=== PATIENT | female | born 1935 | race Two or more races ===

== ENCOUNTER → 2022-07-04 | Outpatient (CLI) | payer OTHER ==
[2022-07-04 10:15] LABS: Urine Bacteria NONE SEEN /hpf (None Seen); Urine Blood Negative /uL (Negative); Urine Specific Gravity 1.004 (1.001-1.035); Urine WBC 1 /hpf (0 - 5)
[2022-07-04 10:34] LABS: Potassium 4.4 mmol/L (3.5-5.1)
[2022-07-04 10:46] LABS: Albumin 3.9 g/dL (3.4-5.0); BUN/Creatinine Ratio 31.5; Bilirubin, Total 0.6 mg/dL (0.2-1.0); Calcium 9.6 mg/dL (8.5-10.1)
== END | disposition home or self-care (01) ==
LOC: LAB 09:28
PROVIDERS: ATTEND Family Medicine
DX: Z00.01 Encounter for general adult medical examination with abnormal findings (principal)
CPT/HCPCS: 36415; 80053; 80061; 81001; 82306; 83036; 84443; 87086; 87088

== ENCOUNTER → 2023-04-15 | Outpatient (CLI) | payer OTHER ==
[2023-04-15 13:32] LABS: Alanine Aminotransferase 18 U/L (7-40); Alkaline Phosphatase 74 U/L (46-116); Anion Gap 5 (5-15); Blood Urea Nitrogen 16 mg/dL (9-23); Calcium 9.7 mg/dL (8.5-10.1); Carbon Dioxide 30 mmol/L (20-30); Chloride 106 mmol/L (98-107); Glucose 84 mg/dL (74-106); Potassium 4.8 mmol/L (3.5-5.1); Sodium 141 mmol/L (136-145); Triglycerides 85 mg/dL (< 150)
[2023-04-15 13:33] LABS: LDL Cholesterol 93 mg/dL (< 100)
[2023-04-15 13:34] LABS: Albumin 4.4 g/dL (3.2-4.8); Aspartate Aminotransferase 24 U/L (13-40); Bilirubin, Total 0.5 mg/dL (0.2-1.0); Cholesterol 170 mg/dL (< 200); HDL Cholesterol 67 mg/dL (40-59); Total Protein 6.5 g/dL (5.7-8.2)
== END | disposition home or self-care (01) ==
LOC: LAB 12:08
PROVIDERS: ATTEND Family Medicine
DX: I12.9 Hypertensive chronic kidney disease with stage 1 through stage 4 chronic kidney disease, or unspecified chronic kidney disease (principal); E11.22 Type 2 diabetes mellitus with diabetic chronic kidney disease; N18.9 Chronic kidney disease, unspecified; E78.5 Hyperlipidemia, unspecified; E78.2 Mixed hyperlipidemia; E03.9 Hypothyroidism, unspecified
CPT/HCPCS: 36415; 80053; 80061; 83036; 84443

== ENCOUNTER → 2023-07-16 | Outpatient (CLI) | payer OTHER ==
[2023-07-16 13:05] LABS: Alanine Aminotransferase 15 U/L (7-40); Albumin 4.2 g/dL (3.2-4.8); Alkaline Phosphatase 79 U/L (46-116); Anion Gap 2 (5-15); Aspartate Aminotransferase 23 U/L (13-40); BUN/Creatinine Ratio 17.1 (10.0-20.0); Blood Urea Nitrogen 14 mg/dL (9-23); Calcium 9.7 mg/dL (8.5-10.1); Carbon Dioxide 34 mmol/L (20-30); Chloride 103 mmol/L (98-107); Cholesterol 155 mg/dL (< 200); Glucose 85 mg/dL (74-106); HDL Cholesterol 58 mg/dL (40-59); LDL Cholesterol 82 mg/dL (< 100); Potassium 4.8 mmol/L (3.5-5.1); Sodium 139 mmol/L (136-145); Triglycerides 126 mg/dL (< 150)
[2023-07-16 13:06] LABS: Bilirubin, Total 0.5 mg/dL (0.2-1.0); Total Protein 6.3 g/dL (5.7-8.2)
== END | disposition home or self-care (01) ==
LOC: LAB 12:22
PROVIDERS: ATTEND Family Medicine
DX: I12.9 Hypertensive chronic kidney disease with stage 1 through stage 4 chronic kidney disease, or unspecified chronic kidney disease (principal); E11.22 Type 2 diabetes mellitus with diabetic chronic kidney disease; N18.9 Chronic kidney disease, unspecified; E78.5 Hyperlipidemia, unspecified; E78.2 Mixed hyperlipidemia; E03.9 Hypothyroidism, unspecified
CPT/HCPCS: 36415; 80053; 80061; 83036

== ENCOUNTER → 2023-07-18 | Outpatient (CLI) | payer OTHER ==
[2023-07-18 10:22] LABS: Basophils # (auto) 0.1 10 ^3/uL (0-0.2); Basophils % (auto) 0.8 % (0.0-2.0); Eosinophils # (auto) 0.1 10 ^3/uL (0-0.8); Hematocrit 42.4 % (36.0-46.0); Hemoglobin 13.9 g/dL (12.2-16.2); Lymphocytes # (auto) 2.1 10 ^3/uL (0.4-5.4); Lymphocytes % (auto) 32.6 % (10.0-50.0); Mean Corpuscular Hemoglobin 28.6 pg (28.0-32.0); Mean Corpuscular Hgb Conc. 32.9 g/dL (32.0-36.0); Mean Corpuscular Volume 86.9 fL (80.0-100.0); Monocytes # (auto) 0.6 10 ^3/uL (0-1.3); Monocytes % (auto) 8.9 % (0.0-12.0); Neutrophils # (auto) 3.6 10 ^3/uL (1.6-8.6); Neutrophils % (auto) 55.7 % (37.0-80.0); Nucleated Red Blood Cells % 0.1 %; Red Blood Cells 4.87 10^6/uL (4.0-5.20); Red Cell Distribution Width 13.8 % (11.8-14.3); Urine Blood Negative /uL (Negative); Urine Clarity Clear (Clear); Urine Protein, UAD Negative (Negative); Urine Specific Gravity 1.005 (1.001-1.035); Urine Urobilinogen Normal (Negative); White Blood Cell 6.6 10^3/uL (4.4-10.8)
[2023-07-18 10:34] LABS: Urine Color Straw (Yellow)
[2023-07-18 11:02] LABS: Alanine Aminotransferase 15 U/L (7-40); Alkaline Phosphatase 85 U/L (46-116); Anion Gap 5 (5-15); Blood Urea Nitrogen 15 mg/dL (9-23); Carbon Dioxide 31 mmol/L (20-30); Chloride 103 mmol/L (98-107); Glucose 87 mg/dL (74-106); LDL Cholesterol 80 mg/dL (< 100); Sodium 139 mmol/L (136-145); Triglycerides 106 mg/dL (< 150)
[2023-07-18 11:03] LABS: Albumin 4.3 g/dL (3.2-4.8); Aspartate Aminotransferase 26 U/L (13-40); Bilirubin, Total 0.5 mg/dL (0.2-1.0); Cholesterol 155 mg/dL (< 200); HDL Cholesterol 61 mg/dL (40-59); Total Protein 6.5 g/dL (5.7-8.2)
[2023-07-18 11:31] LABS: Uric Acid 4.6 mg/dL (3.1-7.8)
== END | disposition home or self-care (01) ==
LOC: LAB 09:47
PROVIDERS: ATTEND Family Medicine
DX: I10 Essential (primary) hypertension (principal); E78.5 Hyperlipidemia, unspecified; R73.09 Other abnormal glucose; F33.9 Major depressive disorder, recurrent, unspecified; D69.2 Other nonthrombocytopenic purpura
CPT/HCPCS: 36415; 80053; 80061; 81003; 82270; 83036; 84443; 84550; 85025

== ENCOUNTER → 2023-08-22 | Outpatient (CLI) | payer OTHER ==
[2023-08-22 15:53] LABS: Urine Bacteria MANY /hpf (None Seen); Urine Blood Negative /uL (Negative); Urine Clarity Clear (Clear); Urine Color Colorless (Yellow); Urine Protein, UAD Negative (Negative); Urine Urobilinogen Normal (Negative); Urine WBC 4 /hpf (0 - 5); Urine pH 6.5 (5.0-9.0)
== END | disposition home or self-care (01) ==
LOC: LAB 15:39
PROVIDERS: ATTEND Urology
DX: R32 Unspecified urinary incontinence (principal)
CPT/HCPCS: 81001; 87086

== ENCOUNTER → 2023-10-14 | Outpatient (CLI) | payer OTHER ==
[2023-10-14 09:51] LABS: Anion Gap 4 (5-15); Calcium 9.8 mg/dL (8.5-10.1); Carbon Dioxide 31 mmol/L (20-30); Chloride 106 mmol/L (98-107); Potassium 4.5 mmol/L (3.5-5.1); Sodium 141 mmol/L (136-145)
[2023-10-14 09:56] LABS: Glucose 89 mg/dL (74-106)
[2023-10-14 09:57] LABS: BUN/Creatinine Ratio 20.7 (10.0-20.0); Blood Urea Nitrogen 17 mg/dL (9-23); LDL Cholesterol 87 mg/dL (< 100); Triglycerides 75 mg/dL (< 150)
[2023-10-14 09:58] LABS: Cholesterol 163 mg/dL (< 200); HDL Cholesterol 61 mg/dL (40-59)
== END | disposition home or self-care (01) ==
LOC: LAB 09:03
PROVIDERS: ATTEND Family Medicine
DX: E78.5 Hyperlipidemia, unspecified (principal); R73.03 Prediabetes; R73.09 Other abnormal glucose
CPT/HCPCS: 36415; 80048; 80061; 83036

== ENCOUNTER 2023-10-20 19:05 | Emergency (ER) | payer OTHER ==
[~2023-10-20] VITALS: Ht 149.9 cm; Wt 63.0 kg
[2023-10-20 19:05] VITALS: BP 146/72; PULSE 70; RESP 20; TEMP 98.8; O2SAT 96
[2023-10-20] MEDS: KETOROLAC TROMETH 30 MG/ML 1ML VIAL IM ONE (21:30)
== END 2023-10-20 21:44 | disposition home or self-care (01) ==
LOC: ER 19:05
DX: M25.561 Pain in right knee (principal); E78.5 Hyperlipidemia, unspecified; E03.9 Hypothyroidism, unspecified; Z88.5 Allergy status to narcotic agent; Z88.2 Allergy status to sulfonamides; Z88.8 Allergy status to other drugs, medicaments and biological substances
CPT/HCPCS: 73562; 96372; 99283; J1885

== ENCOUNTER 2023-12-14 22:09 | Emergency (ER) | payer OTHER ==
[~2023-12-14] VITALS: Ht 152.4 cm; Wt 63.2 kg
[2023-12-14 23:23] VITALS: BP 156/74; PULSE 75; RESP 18; TEMP 98.4; O2SAT 97
== END 2023-12-15 00:48 | disposition home or self-care (01) ==
LOC: ER 22:09
DX: S16.1XXA Strain of muscle, fascia and tendon at neck level, initial encounter (principal); S00.83XA Contusion of other part of head, initial encounter; E78.5 Hyperlipidemia, unspecified; E03.9 Hypothyroidism, unspecified; Z88.2 Allergy status to sulfonamides; Z88.1 Allergy status to other antibiotic agents; W18.30XA Fall on same level, unspecified, initial encounter; Y93.89 Activity, other specified; Y92.89 Other specified places as the place of occurrence of the external cause; Y99.8 Other external cause status
CPT/HCPCS: 70450; 72040

== ENCOUNTER → 2024-01-23 | Outpatient (CLI) | payer OTHER ==
[2024-01-23 11:21] LABS: Anion Gap 4 (5-15); Carbon Dioxide 31 mmol/L (20-30); Chloride 106 mmol/L (98-107); Potassium 4.8 mmol/L (3.5-5.1); Sodium 141 mmol/L (136-145)
[2024-01-23 11:22] LABS: Calcium 10.3 mg/dL (8.7-10.4)
[2024-01-23 11:27] LABS: BUN/Creatinine Ratio 24.1 (10.0-20.0); Blood Urea Nitrogen 20 mg/dL (9-23); Glucose 86 mg/dL (74-106); Triglycerides 104 mg/dL (< 150)
[2024-01-23 11:28] LABS: LDL Cholesterol 89 mg/dL (< 100)
[2024-01-23 11:29] LABS: Cholesterol 159 mg/dL (< 200); HDL Cholesterol 56 mg/dL (40-59)
== END | disposition home or self-care (01) ==
LOC: LAB 09:42
PROVIDERS: ATTEND Family Medicine
DX: R73.09 Other abnormal glucose (principal)
CPT/HCPCS: 36415; 80048; 80061; 83036

== ENCOUNTER → 2024-04-14 | Outpatient (CLI) | payer OTHER ==
[2024-04-14 10:47] LABS: Alanine Aminotransferase 14 U/L (7-40); Albumin 4.1 g/dL (3.2-4.8); Alkaline Phosphatase 76 U/L (46-116); Anion Gap 3 (5-15); Aspartate Aminotransferase 19 U/L (13-40); BUN/Creatinine Ratio 19.8 (10.0-20.0); Blood Urea Nitrogen 16 mg/dL (9-23); Calcium 10.1 mg/dL (8.7-10.4); Cholesterol 172 mg/dL (< 200); Glucose 90 mg/dL (74-106); LDL Cholesterol 88 mg/dL (< 100); Potassium 5.1 mmol/L (3.5-5.1); Sodium 143 mmol/L (136-145); Triglycerides 97 mg/dL (< 150)
[2024-04-14 10:48] LABS: Bilirubin, Total 0.5 mg/dL (0.2-1.0); Total Protein 6.3 g/dL (5.7-8.2)
[2024-04-14 10:52] LABS: Carbon Dioxide 32 mmol/L (20-31); Chloride 108 mmol/L (98-107); HDL Cholesterol 67 mg/dL (40-59)
== END | disposition home or self-care (01) ==
LOC: LAB 09:41
PROVIDERS: ATTEND Family Medicine
DX: I12.9 Hypertensive chronic kidney disease with stage 1 through stage 4 chronic kidney disease, or unspecified chronic kidney disease (principal); E11.22 Type 2 diabetes mellitus with diabetic chronic kidney disease; N18.9 Chronic kidney disease, unspecified; E78.2 Mixed hyperlipidemia; E11.65 Type 2 diabetes mellitus with hyperglycemia
CPT/HCPCS: 36415; 80053; 80061; 83036

== ENCOUNTER 2024-05-05 15:16 | Emergency (ER) | payer OTHER ==
[~2024-05-05] VITALS: Ht 157.5 cm; Wt 64.0 kg
[2024-05-05 15:30] VITALS: BP 158/77; PULSE 81; RESP 18; O2SAT 96
[2024-05-05] MEDS ORDERED: ALBU108A5 IN (16:16)
[2024-05-05] MEDS ORDERED: PROM1SOL4 PO (16:16)
[2024-05-05] MEDS ORDERED: AZITTAB PO (16:16)
--- NOTE | 2024-05-05 16:16 | ED.PDOC ---
SOB-HPI HPI Comments 88-year-old female complaining of cough and congestion times 10 days. States she was had intermittent fevers and chills. No shortness a breath. No chest pain. Says she does feel rattle in her chest when she was coughing. Nothing makes it better, nothing makes it worse. Chief Complaint: Cough Time Seen by MD: 15:29 Primary Care Provider: unknown Reviewed notes: Nurses Notes Information Source: Patient Mode of Arrival: Ambulatory Severity: Mild Past Medical History PAST MEDICAL HISTORY: High Lipids, Thyroid Surgical History: Denies all surgeries DIGITAL CONTENT COORDINATOR History: No Pertinent DIGITAL CONTENT COORDINATOR History Family History Family History: Reviewed,noncontributory to illness Social History Smoker: Non-Smoker Alcohol: Denies ETOH Use Drugs: Denies Drug Use Lives In: Home Constitutional: denies: chills, diaphoresis, fatigue, fever, malaise, sweats, weakness, others EENTM: denies: blurred vision, double vision, ear bleeding, ear discharge, ear drainage, ear pain, ear ringing, eye pain, eye redness, hearing loss, mouth pain, mouth swelling, nasal discharge, nose bleeding, nose congestion, nose pain, photophobia, tearing, throat pain, throat swelling, voice changes, others Respiratory: reports: cough; denies: hemoptysis, orthopnea, SOB at rest, shortness of breath, SOB with excertion, stridor, wheezing, others Cardiovascular: denies: chest pain, dizzy spells, diaphoresis, Dyspnea on exertion, edema, irregular heart beat, left arm pain, lightheadedness, palpitations, PND, syncope, others Gastrointestinal: denies: abdomen distended, abdominal pain, blood streaked bowels, constipated, diarrhea, dysphagia, difficulty swallowing, hematemesis, melena, nausea, poor appetite, poor fluid intake, rectal bleeding, rectal pain, vomiting, others Genitourinary: denies: abnormal vagina bleeding, burning, dyspareunia, dysuria, flank pain, frequency, hematuria, incontinence, pain, , vagina discharge, urgency, others Neurological: denies: dizziness, fainting, headache, left sided numbness, left sided weakness, numbness, paresthesia, pre-existing deficit, right sided numbness, right sided weakness, seizure, speech problems, tingling, tremors, weakness, others Musculoskeletal: denies: back pain, gout, joint pain, joint swelling, muscle pain, muscle stiffness, neck pain, others Integumetry: denies: bruises, change in color, change in hair/nails, dryness, laceration, lesions, lumps, rash, wounds, others Allergic/Immunocompromised: denies: Difficulty Healing, Frequent Infections, Hives, Itching, others Physical Exam General Appearance: No Apparent Distress, Normal HEENT: Normal ENT Inspection, Pharynx Normal, TMs Normal Neck: Full Range of Motion, Non-Tender, Normal, Normal Inspection Respiratory: Chest Non-Tender, Lungs Clear, No Accessory Muscle Use, No Respiratory Distress, Normal Breath Sounds Cardiovascular: No Edema, No JVD, No Murmur, No Gallop, Normal Peripheral Pulses, Regular Rate/Rhythm Breast Exam: Deferred Gastrointestinal: No Organomegaly, Non Tender, No Pulsatile Mass, Normal Bowel Sounds, Soft Genitalia: Deferred Pelvic: Deferred Rectal: Deferred Extremities: No calf tenderness, Normal capillary refill, Normal inspection, Normal range of motion, Non-tender, No pedal edema Musculoskeletal : Apperance: Normal Neurologic: Alert, barge loader II-XII nml as Tested, No Motor Deficits, Normal Affect, Normal Mood, No Sensory Deficits Cerebellar Function: Normal Reflexes: Normal Skin: Dry, Normal Color, Warm Lymphatic: No Adenopathy Was a procedure done? Was a procedure done?: No Differential Dx Differential Diagnosis: Bronchitis, Pneumonia X-Ray, Labs, Meds, VS Vital Signs Date Time Temp Pulse Resp B/P (MAP) Pulse Ox O2 Delivery O2 Flow Rate FiO2 05/05/24 15:30 97.7 81 18 158/77 (104) 96 05/05/24 15:30 18 96 Room Air* 0 21 X-Ray, Labs, Meds, VS Comment Imaging: X-rays and CT scans were reviewed and interpreted by this provider, imaging shows no fractures and no pathological disease. Pending radiology review. Laboratory: Labs reviewed and interpreted by this provider. No significant abnormalities noted. Patient has prior medical visits reviewed. Med reconciliation performed Vital signs reviewed Time of 1ST Reevaluation: 16:16 Reevaluation 1ST: Improved Patient Education/Counseling: Diagnosis, Treatment, Need For Follow Up (Follow up with PCP in the next 24-48 hours.) Family Education/Counseling: Diagnosis Departure 1 Departure Time of Disposition: 16:03 Impression: Primary Impression: Bronchitis Disposition: 01 HOME / SELF CARE / HOMELESS Condition: Fair e-Prescriptions Albuterol Sulfate (Albuterol Sulfate Hfa) 108 Mcg/Act Aer 108 MCG IN TID PRN, #1 AER Prov: KOMAL ZIMMERMAN 05/05/24 Promethazine-Dm (Promethazine Dm 6.25-15 mg/5Ml) 1 Billie Billie 5 ML PO TID PRN, #240 ML Prov: KOMAL ZIMMERMAN 05/05/24 Azithromycin (Zithromax Z-Polo) 250 Mg Tab 250 MG PO DAILY for 5 Days, #6 TAB Prov: KOMAL ZIMMERMAN 05/05/24 Discharged With: Self Critical Care Note Critical Care Time?: No Stability Stability form required: No Heart Score Heart Score: Heart Score Response (Comments) Value History N/A 0 EKG N/A 0 Age N/A 0 Risk Factors N/A 0 Troponin N/A 0 Total 0 KOMAL ZIMMERMAN May 05, 2024 16:16
== END 2024-05-05 16:56 | disposition home or self-care (01) ==
LOC: ER 15:16
DX: J40 Bronchitis, not specified as acute or chronic (principal); E03.9 Hypothyroidism, unspecified; E78.5 Hyperlipidemia, unspecified

== ENCOUNTER → 2024-05-14 | Outpatient (CLI) | payer OTHER ==
[~2024-05-14] MED LIST: ALBU108A5 IN; AZITTAB PO; PROM1SOL4 PO
[2024-05-14 09:12] LABS: Urine Bacteria None Seen /hpf (None Seen)
[2024-05-14 09:44] LABS: Urine Blood Negative /uL (Negative); Urine Clarity Clear (Clear); Urine Color Light-Yellow (Yellow); Urine Protein, UAD Negative (Negative); Urine Specific Gravity 1.015 (1.001-1.035); Urine Squamous Epithelial Cell FEW /hpf (<5); Urine Urobilinogen Normal (Negative); Urine WBC 2 /hpf (0 - 5)
[2024-05-14 09:54] LABS: Alanine Aminotransferase 15 U/L (7-40); Albumin 4.2 g/dL (3.2-4.8); Alkaline Phosphatase 80 U/L (46-116); Anion Gap 3 (5-15); Aspartate Aminotransferase 23 U/L (13-40); BUN/Creatinine Ratio 30.6 (10.0-20.0); Calcium 10.2 mg/dL (8.7-10.4); Carbon Dioxide 31 mmol/L (20-31); Chloride 105 mmol/L (98-107); Cholesterol 180 mg/dL (< 200); Glucose 90 mg/dL (74-106); Potassium 4.7 mmol/L (3.5-5.1); Sodium 139 mmol/L (136-145); Triglycerides 66 mg/dL (< 150)
[2024-05-14 09:55] LABS: Bilirubin, Total 0.4 mg/dL (0.2-1.0); Total Protein 6.6 g/dL (5.7-8.2)
[2024-05-14 10:01] LABS: Blood Urea Nitrogen 26 mg/dL (9-23); HDL Cholesterol 73 mg/dL (40-59); LDL Cholesterol 102 mg/dL (< 100)
== END | disposition home or self-care (01) ==
LOC: LAB 09:02
PROVIDERS: ATTEND Family Medicine
DX: E78.5 Hyperlipidemia, unspecified (principal); E03.9 Hypothyroidism, unspecified; R32 Unspecified urinary incontinence; F41.1 Generalized anxiety disorder; N18.2 Chronic kidney disease, stage 2 (mild)
CPT/HCPCS: 36415; 80053; 80061; 81001; 83036; 84443

== ENCOUNTER → 2024-07-02 | Outpatient (CLI) | payer OTHER ==
[2024-07-02 16:19] LABS: Potassium 5.1 mmol/L (3.5-5.1)
[2024-07-02 16:25] LABS: BUN/Creatinine Ratio 31.6 (10.0-20.0)
[2024-07-02 16:28] LABS: Phosphorus 3.1 mg/dL (2.4-5.1)
[2024-07-02 16:29] LABS: Albumin 4.8 g/dL (3.2-4.8); Calcium 10.8 mg/dL (8.7-10.4)
== END | disposition home or self-care (01) ==
LOC: LAB 15:21
PROVIDERS: ATTEND Student in an Organized Health Care Education/Training Program
DX: Z01.812 Encounter for preprocedural laboratory examination (principal); I10 Essential (primary) hypertension
CPT/HCPCS: 36415; 80069

== ENCOUNTER 2024-07-25 07:52 | Day surgery (SDC) | payer OTHER ==
[2024-07-22 10:25] LABS: Basophils # (auto) 0 10 ^3/uL (0-0.2); Basophils % (auto) 0.3 % (0.0-2.0); Eosinophils # (auto) 0.1 10 ^3/uL (0-0.8); Eosinophils % (auto) 1.2 % (0.0-7.0); Hematocrit 42.9 % (36.0-46.0); Hemoglobin 14.5 g/dL (12.2-16.2); Lymphocytes # (auto) 1.5 10 ^3/uL (0.4-5.4); Lymphocytes % (auto) 17.1 % (10.0-50.0); Mean Corpuscular Hemoglobin 29.8 pg (28.0-32.0); Mean Corpuscular Hgb Conc. 33.9 g/dL (32.0-36.0); Monocytes # (auto) 0.8 10 ^3/uL (0-1.3); Monocytes % (auto) 8.7 % (0.0-12.0); Neutrophils # (auto) 6.5 10 ^3/uL (1.6-8.6); Neutrophils % (auto) 72.7 % (37.0-80.0); Nucleated Red Blood Cells % 0.1 %; Platelet Count (auto) 233 10^3/uL (140-450); Red Blood Cells 4.87 10^6/uL (4.0-5.20); Red Cell Distribution Width 14.6 % (11.8-14.3); White Blood Cell 8.9 10^3/uL (4.4-10.8)
[2024-07-22 10:33] LABS: INR 0.94 (0.9-1.15); Partial Thromboplastin Time 27.1 SEC (24.5-34.5)
[2024-07-22 10:34] LABS: Alanine Aminotransferase 36 U/L (7-40); Albumin 4.5 g/dL (3.2-4.8); Alkaline Phosphatase 84 U/L (46-116); Anion Gap 5 (5-15); Aspartate Aminotransferase 27 U/L (13-40); BUN/Creatinine Ratio 15.6 (10.0-20.0); Bilirubin, Total 0.6 mg/dL (0.2-1.0); Blood Urea Nitrogen 14 mg/dL (9-23); Carbon Dioxide 30 mmol/L (20-31); Chloride 107 mmol/L (98-107); Glucose 91 mg/dL (74-106); Sodium 142 mmol/L (136-145)
[2024-07-22 10:39] LABS: Calcium 10.6 mg/dL (8.7-10.4); Potassium 5.5 mmol/L (3.5-5.1)
[~2024-07-25] VITALS: Ht 157.5 cm; Wt 63.5 kg
[~2024-07-25 07:52] MED LIST changes: +ASCO500T11 PO; +ASPI-543 PO; -AZITTAB PO; +B-CO1CAP18 PO; +BIOT10004 PO; +CALCTAB PO; +CHOL500021 OR; +GLUC500T48 PO; +LEVO25TA6 PO; +LOSA-533 PO; +LOVA40TA72 PO; +MENA1TAB PO; +MISCCAP66 PO; +OMEG-54 PO; +PANT40TA2 PO; -PROM1SOL4 PO; +SERT25TA28 PO; +VITA400T4 PO
[2024-07-25] MEDS ORDERED: fentaNYL CITRATE 100 MCG/2 ML VL ONE (08:34)
[2024-07-25] MEDS ORDERED: SODIUM CHLORIDE LOCK 10 ML ONE (08:36)
[2024-07-25] MEDS: MIDAZOLAM HCL 5 MG/ML-1ML VIAL ONE (09:05)
--- NOTE | 2024-07-25 09:33 | DVHNC2 ---
Procedure - DATE OF PROCEDURE: July 25, 2024 SURGEON: VANESA LANDIS MD REFERRING PROVIDER: Dr. Isabel Vazquez MD PROCEDURE PERFORMED: 1 Colonoscopy with moderate sedation 2. Colonoscopy with cold snare polypectomy PRE-PROCEDURE DIAGNOSIS: 1. Chronic constipation 2. Abdominal pain POSTPROCEDURE DIAGNOSIS: 1. Small internal hemorrhoids 2. Severe diverticulosis throughout the colon 3. Small transverse colon polyp INDICATIONS FOR PROCEDURE: The patient is a 89-year-old female with chronic constipation and abdominal pain who presents for outpatient colonoscopy. Last colonoscopy many years ago showed diverticulosis. MEDICATIONS USED: 5mg of Versed IV were given in incremental doses. DETAILS OF THE PROCEDURE: Informed consent was obtained after risks, benefits, and alternatives, were discussed at length with the patient. The patient gave consent to the procedure as well as the medication used for sedation. The patient was placed in the left lateral decubitus position. Digital rectal exam showed internal hemorrhoids. An Olympus variable torsion pediatric colonoscope was inserted into the rectum and advanced to the cecum. The cecum was identified by the ileocecal valve and the appendiceal orifice. The scope was then withdrawn. The patient had severe diverticulosis throughout the colon. There were no large polyps, masses, strictures, or arteriovenous malformations. There was a 5 mm transverse colon. This was removed with cold snare completely. Retroflexion showed internal hemorrhoids. The patient tolerated the procedure well. [place] BOWEL PREP SCORE: 9 COLONOSCOPY START TIME: 905 CECUM TIME: 914 COLONOSCOPY END TIME:920 IMPRESSION: 1. Small Internal hemorrhoids odes of colitis or diverticulitis. 2. Severe diverticulosis throughout the colon 3. Small polyp transverse colon removed with cold snare RECOMMENDATIONS: 1. Follow up in GI clinic for procedure and pathology results 2. High-fiber diet 3. Education will be given on diverticulosis 4. Stool softeners, and/or laxatives as needed I WOULD LIKE TO THANK DR. VAZQUEZ FOR THIS REFERRAL VANESA LANDIS MD Jul 25, 2024 09:33
[2024-07-25 10:05] VITALS: BP 126/61; PULSE 65; RESP 18; O2SAT 97
== END 2024-07-25 10:10 | disposition home or self-care (01) ==
LOC: GI 07:52
PROVIDERS: ATTEND Specialist
DX: K59.09 Other constipation (principal); D12.3 Benign neoplasm of transverse colon; K57.30 Diverticulosis of large intestine without perforation or abscess without bleeding; R10.9 Unspecified abdominal pain; I10 Essential (primary) hypertension; E78.00 Pure hypercholesterolemia, unspecified; Z85.42 Personal history of malignant neoplasm of other parts of uterus; Z90.710 Acquired absence of both cervix and uterus; Z98.890 Other specified postprocedural states
CPT/HCPCS: 36415; 45385; 80053; 85025; 85610; 85730; 88305; J2250; J3010; 99152

== ENCOUNTER → 2024-08-13 | Day surgery (SDC) | payer OTHER ==
[2024-08-10 15:36] LABS: INR 0.94 (0.9-1.15); Partial Thromboplastin Time 23.3 SEC (24.5-34.5)
[2024-08-10 15:46] LABS: Basophils # (auto) 0.1 10 ^3/uL (0-0.2); Basophils % (auto) 0.8 % (0.0-2.0); Eosinophils # (auto) 0.1 10 ^3/uL (0-0.8); Eosinophils % (auto) 0.7 % (0.0-7.0); Hematocrit 41.6 % (36.0-46.0); Hemoglobin 13.7 g/dL (12.2-16.2); Lymphocytes % (auto) 23.1 % (10.0-50.0); Mean Corpuscular Hemoglobin 29.2 pg (28.0-32.0); Mean Corpuscular Volume 88.3 fL (80.0-100.0); Monocytes # (auto) 0.7 10 ^3/uL (0-1.3); Monocytes % (auto) 8.5 % (0.0-12.0); Neutrophils # (auto) 5.7 10 ^3/uL (1.6-8.6); Neutrophils % (auto) 66.9 % (37.0-80.0); Nucleated Red Blood Cells % 0.2 %; Platelet Count (auto) 282 10^3/uL (140-450); Red Blood Cells 4.71 10^6/uL (4.0-5.20); Red Cell Distribution Width 14.6 % (11.8-14.3); White Blood Cell 8.5 10^3/uL (4.4-10.8)
[2024-08-10 15:55] LABS: Alanine Aminotransferase 21 U/L (7-40); Albumin 4.2 g/dL (3.2-4.8); Alkaline Phosphatase 89 U/L (46-116); Anion Gap 6 (5-15); Aspartate Aminotransferase 23 U/L (13-40); BUN/Creatinine Ratio 26.7 (10.0-20.0); Carbon Dioxide 29 mmol/L (20-31); Chloride 105 mmol/L (98-107); Glucose 87 mg/dL (74-106); Potassium 4.1 mmol/L (3.5-5.1); Sodium 140 mmol/L (136-145); Total Protein 6.6 g/dL (5.7-8.2)
[2024-08-10 15:56] LABS: Bilirubin, Total 0.3 mg/dL (0.2-1.0); Blood Urea Nitrogen 23 mg/dL (9-23)
[2024-08-11 11:10] LABS: Urine Blood Negative /uL (Negative); Urine Clarity Clear (Clear); Urine Color Light-Yellow (Yellow); Urine Hyaline Cast FEW /lpf (0 - 2); Urine Protein, UAD Negative (Negative); Urine Specific Gravity 1.017 (1.001-1.035); Urine Squamous Epithelial Cell FEW /hpf (<5); Urine Urobilinogen Normal (Negative); Urine WBC < 1 /HPF (0-5); Urine pH 5.5 (5.0-9.0)
[~2024-08-13] VITALS: Ht 157.5 cm; Wt 63.5 kg
[~2024-08-13] MED LIST changes: -ALBU108A5 IN; +GLYCOPYRROLATE 0.2 MG/ML 1ML VIAL ONE; +LIDOCAINE 2% (LOCAL ANESTH.) PF 5ml SDV ONE; +ONDANSETRON HCL 4 MG/2 ML VIAL ONE; +PROPOFOL 10 MG/ML 20 ML IV ONE; +SEVOFLURANE 250 ML SOL IN ONE
--- NOTE | 2024-08-13 10:20 | DVHNC2 ---
Procedure - OPERATIVE REPORT Pre-op. Diagnosis: Stress Urinary Incontinence Intrinsic Sphincteric Deficiency Post-op. 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 Indications, risks, complications, alternatives and benefits of cystoscopy with injection of bulking agent were discussed with patient. All questions were encouraged and answered. Patient is aware of specific risks/complications inc luding but not limited to infection, bleeding, persistent urinary hematuria, urinary incontinence and urinary retention. Informed consent was obtained. Details of Procedure: Patient is taken to Operating suite and given appropriate anesthesia. After prepping and draping, the patient was placed in the lithotomy position. A 21 F rigid cystoscope was introduced and the bladder was emptied. Next, the scope was positioned in the urethra and injection of Coaptite (Bulking agent) at 4 thru 8 O'clock position using a long transurethral needle was performed. Fluoroscopy was utilized to confirm the proper placement of the radioopaque bulking agent. Coaptation of bladder neck was noted. Bladder was emptied. Patient tolerated the procedure well. Patient is awakened and taken to RR in stable condition. Specimens: None Complications: None Findings: Notes: DISPOSITION: Discharge to home after voided . RTC 2 weeks. MICHELLE DALY MD Aug 13, 2024 10:20
--- NOTE | 2024-08-13 10:21 | DVHDS2 ---
New Physician D'charge PN Admitting Diagnosis Admitting Diagnosis GLEN/ISD Discharge Diagnosis same Operations or Procedures Transurethral injection of coaptite Reason(s) For Hospitalization Surgery Treatment Plan Discharge Condition of Discharge Good Disposition Home Discharge Instructions Diet: Regular Activity: Light activity Activity comment: as tolerated Medications: given Follow Up Care Follow Up/Referral: 2 weeks Discharge Statement: "Patient was advised to return to the ER or call 911 if any headaches, dizziness, shortness of breath, chest pain, abdominal pain, bleeding, fevers, or worsening of medical condition. Patient was counseled about treatment plan, medications, possible side effects, patientverbalized understanding. All questions were answered to the best of my ability. This discharge took greater then 30 minutes in planning, reviewing documentation, counseling the patient, and discussing with other team members." MICHELLE DALY MD Aug 13, 2024 10:21
[2024-08-13 11:00] VITALS: PULSE 110; RESP 14; O2SAT 96
--- NOTE | 2024-08-13 11:40 | DVH ---
FLUOROSCOPY TIME: 12.6 seconds TECHNIQUE: Intraoperative radiographs of the pelvis were obtained. COMPARISON: None FINDINGS: Refer to intraoperative report for further evaluation. IMPRESSION: Refer to intraoperative report for further evaluation.
[2024-08-13 12:05] VITALS: BP 112/76; PULSE 80; RESP 21; O2SAT 99
== END | disposition home or self-care (01) ==
LOC: SUR 09:21
PROVIDERS: ATTEND Urology
DX: N36.42 Intrinsic sphincter deficiency (ISD) (principal); N39.3 Stress incontinence (female) (male); I10 Essential (primary) hypertension; E78.00 Pure hypercholesterolemia, unspecified; E03.9 Hypothyroidism, unspecified; K21.9 Gastro-esophageal reflux disease without esophagitis; F41.9 Anxiety disorder, unspecified; Z90.710 Acquired absence of both cervix and uterus; Z85.42 Personal history of malignant neoplasm of other parts of uterus; Z98.890 Other specified postprocedural states
CPT/HCPCS: 36415; 51715; 74018; 80053; 81001; 85025; 85610; 85730; 87086; A4315; J2003; J2405; J2704; L8606; 76000

== ENCOUNTER 2024-08-14 16:50 | Emergency (ER) | payer OTHER ==
[~2024-08-14] VITALS: Ht 162.6 cm; Wt 82.0 kg
[~2024-08-14 16:50] MED LIST changes: -GLYCOPYRROLATE 0.2 MG/ML 1ML VIAL ONE; -LIDOCAINE 2% (LOCAL ANESTH.) PF 5ml SDV ONE; -ONDANSETRON HCL 4 MG/2 ML VIAL ONE; -PROPOFOL 10 MG/ML 20 ML IV ONE; -SEVOFLURANE 250 ML SOL IN ONE
[2024-08-14 17:30] VITALS: O2SAT 89
[2024-08-14 19:01] VITALS: BP 125/60; PULSE 64; RESP 16; TEMP 98.1; O2SAT 95
--- NOTE | 2024-08-14 19:03 | ED.PDOC ---
History of Present Illness HPI Comments 89 y/o obese F, with a history of uterine cancer s/p hysterectomy, HLD, HTN, and thryoid disease, is [id number] ambulance for c/o urinary retention, today. Patient reports on onset of symptoms following removal of her Zabala catheter she had in place, today, at her urologist Dr. Sriram Hanna's office. She reports on having catheter placed, initially, following a cystoscopy - injection of bulking agent and fluoroscopy procedures she had performed on 08/13/24 for stress urinary incontinence and intrinsic sphincter deficiency. Patient also c/o associated lower abdominal pressure and constipation. She denies any nausea, vomiting, fever, chills, or other associated symptoms or modifiers at this time. Chief Complaint: Urinary Time Seen by MD: 18:50 Primary Care Provider: ADDY Reviewed Notes: Nurses Notes, Signaling Project Engineer Notes, Medications, Allergies Allergies: Coded Allergies: Enalapril (Unverified Allergy, Severe, tongue swelling , 07/22/24) Codeine (Unverified Allergy, Intermediate, N/V fainting , 08/10/24) Prednisone (Unverified Allergy, Intermediate, N/V ,fainting , 08/10/24) Sulfa Drugs (Unverified Allergy, Intermediate, N/V fainting , 08/10/24) Acetaminophen (Unverified Adverse Reaction, Intermediate, N/V, fainting, 07/22/24) Hydrocodone (Unverified Adverse Reaction, Intermediate, N/V, fainting, 07/22/24) Morphine (Unverified Adverse Reaction, Unknown, N/V,Fainting , 07/22/24) Propoxyphene (Unverified Adverse Reaction, Unknown, N/V, Fainting, 07/22/24) Uncoded Allergies: steriods (Adverse Reaction, Intermediate, Fainting, N/V, 07/22/24) Home Meds Reported Medications Turmeric (Turmeric Curcumin) Curcumin Cap, 1 CAP PO DAILY, CAP 07/23/24 Biotin (Vitamin H) (Biotin) 1,000 Mcg Tab, 1000 MCG PO, TAB 07/23/24 Menaquinone-7 (Vitamin K2) Unknown Strength Tab, PO, TAB 07/23/24 B-Complex Vitamins (Vitamin B Complex) 1 Cap Cap, 1 CAP PO, CAP 07/23/24 Cholecalciferol (VITAMIN D) Unknown Strength Tab, OR, TAB 07/23/24 Pantoprazole Sodium Sesquihydr (Protonix) 40 Mg Tab, 20 MG PO DAILY, #30 TAB 07/23/24 Sertraline Hcl (Sertraline Hcl) 25 Mg Tab, 1 TAB PO BID, #30 TAB 2 Refills 07/23/24 [place] 3 Fatty Acids-[place] 6 FA (Triple [place] 3-6-9) 1 Cap Cap, 1 CAP PO DAILY, CAP 07/23/24 Ascorbic Acid (VITAMIN C TABLET) 500 Mg Tb, 1 TAB PO DAILY, #30 TAB 3 Refills 07/23/24 Calcium Carbonate-Cholecalcife (Caltrate 600+D3 600-800 mg-Unit) 1 Tab Tab, 1 TAB PO, TAB 07/23/24 Glucosamine Hydrochloride (GLUCOSAMINE) Unknown Strength Tab, PO, TAB 07/23/24 Alpha Tocopheryl Acid Succinat (VITAMIN E) 400 Unit Tab, 400 MG PO DAILY, TAB 07/23/24 Levothyroxine Sodium (Levothyroxine Sodium) 25 Mcg Tab, 25 MCG PO QAM, MCG 07/23/24 Losartan Potassium (Losartan Potassium) 25 Mg Tab, 25 MG PO DAILY for 30 Days, MG 07/23/24 Aspirin (Aspir-Low) 81 Mg Tab, 81 MG PO DAILY for 30 Days, MG 07/23/24 Lovastatin (Lovastatin) 40 Mg Tab, 40 MG PO, TAB 07/23/24 Information Source: Patient, Relative, Emergency Med Personnel Mode of Arrival: EMS Severity: Moderate Timing: Hours Duration: Since onset Prehospital treatment: 12 Lead EKG, Other Sports Official Past Medical History PAST MEDICAL HISTORY: Anxiety, Cancer (uterine cancer s/p hysterectomy ), High Lipids, HTN, Thyroid Past Medical History (Other): obesity Surgical History: Hysterectomy AMPHIBIAN CREWMEMBER History: No Pertinent AMPHIBIAN CREWMEMBER History Family History Family History: Reviewed,noncontributory to illness Social History Smoker: Non-Smoker Alcohol: Denies ETOH Use Drugs: Denies Drug Use Lives In: Home All Other Systems: Reviewed and Negative (Comprehensive systems review obtained and negative except for what is stated in the HPI.) Physical Exam General Appearance: No Apparent Distress, Normal HEENT: Normal ENT Inspection, Pharynx Normal, TMs Normal Neck: Full Range of Motion, Non-Tender, Normal, Normal Inspection Respiratory: Chest Non-Tender, Lungs Clear, No Accessory Muscle Use, No Respiratory Distress, Normal Breath Sounds Cardiovascular: No Edema, No JVD, No Murmur, No Gallop, Normal Peripheral Pulses, Regular Rate/Rhythm Breast Exam: Deferred Gastrointestinal: No Organomegaly, Non Tender, No Pulsatile Mass, Normal Bowel Sounds, Soft Genitalia: Deferred Pelvic: Deferred Rectal: Deferred Extremities: No calf tenderness, Normal capillary refill, Normal inspection, Normal range of motion, Non-tender, No pedal edema Musculoskeletal : Apperance: Normal Neurologic: Alert, correspondence coordinator II-XII nml as Tested, No Motor Deficits, Normal Affect, Normal Mood, No Sensory Deficits Cerebellar Function: Normal Reflexes: Normal Skin: Dry, Normal Color, Warm Lymphatic: No Adenopathy Was a procedure done? Was a procedure done?: No Differential Dx Considerations may include: stress urinary incontinence, intrinsic sphincter deficiency, post-Zabala catheter removal complication, post-op complication, among others X-Ray, Labs, Meds, VS Vital Signs Date Time Temp Pulse Resp B/P (MAP) Pulse Ox O2 Delivery O2 Flow Rate FiO2 08/14/24 19:01 98.1 64 16 125/60 (81) 95 98.1 08/14/24 18:00 62 15 121/54 (76) 97 08/14/24 17:30 89 Room Air* 0 21 08/14/24 17:30 98.4 69 12 140/65 (90) 89 98.4 08/14/24 17:24 68 08/14/24 16:59 98.1 81 16 124/59 (80) 100 98.1 X-Ray, Labs, Meds, VS Comment 89-year-old female with a recent history of urethral bulking procedure with a Zabala removal done earlier today at clinic here today with complaints of urinary retention. Zabala catheter was replaced here in the ER with the patient was experiencing significant relief of her symptoms. Patient can follow up in her clinic tomorrow morning for re-evaluation. No dysuria or hematuria. No abdominal pain. No other complaints of pain or symptoms. Patient was discharged home with her family at bedside in stable condition. Provided strict return precautions for any fever, chills, nausea, vomiting, diarrhea, dysuria, hematuria, abdominal pain, any other new or concerning symptoms. Patient expressed understanding and was discharged home in stable condition ambulating with a steady gait in no distress. Of note, patient was placed on oxygen via nasal cannula while she was in the ER for an unknown reason. On my evaluation, patient with O2 saturation of 97% on room air with a good waveform. Patient without history of COPD. Patient without any respiratory complaints. Patient was stable for discharge. Time of 1ST Reevaluation: 19:20 Reevaluation 1ST: Resolved Patient Education/Counseling: Diagnosis, Treatment, Need For Follow Up Family Education/Counseling: Diagnosis, Treatment, Need For Follow Up Additional Information Previous medical encounters reviewed: Urinary incontinence encounter on August 13, 2024 The following tests were ordered, and results were reviewed by me: N/A Additional Information was gathered from interviewing the following independent historians: family I reviewed and agreed with the following test results read by other providers: N/A I discussed treatment and results with medical personnel and: Patient, family Departure 1 Departure Time of Disposition: 20:34 Impression: Primary Impression: Urinary retention Additional Impression: Status post injection of urethral bulking agent Disposition: HOME / SELF CARE / HOMELESS Condition: Stable Additional Instructions: Follow up with your specialist clinic tomorrow morning regarding your urinary retention and replacement of the Zabala in the ER today. Discharged With: Other (Family members at bedside) Critical Care Note Critical Care Time?: No Stability Stability form required: No Heart Score Heart Score: Heart Score Response (Comments) Value History N/A 0 EKG N/A 0 Age N/A 0 Risk Factors N/A 0 Troponin N/A 0 Total 0 I personally scribed for MIRA YOUNG MD ([email or web address]) on 08/14/24 at 19:03. Electronically submitted by Rodolfo Hui ([email or web address]). MIRA YOUNG MD Aug 14, 2024 19:03
== END 2024-08-14 19:09 | disposition home or self-care (01) ==
LOC: ER 16:50 → EDBD 16:50 → ER 19:09
DX: R33.9 Retention of urine, unspecified (principal); R10.30 Lower abdominal pain, unspecified; I10 Essential (primary) hypertension; E66.9 Obesity, unspecified; E78.5 Hyperlipidemia, unspecified; F41.9 Anxiety disorder, unspecified; K59.00 Constipation, unspecified; Z79.82 Long term (current) use of aspirin; Z79.890 Hormone replacement therapy; Z79.899 Other long term (current) drug therapy; Z85.42 Personal history of malignant neoplasm of other parts of uterus; Z90.710 Acquired absence of both cervix and uterus; Z88.2 Allergy status to sulfonamides; Z88.5 Allergy status to narcotic agent; Z88.8 Allergy status to other drugs, medicaments and biological substances
CPT/HCPCS: 51702

== ENCOUNTER → 2024-09-23 | Outpatient (CLI) | payer OTHER ==
[2024-09-23 09:16] LABS: Alanine Aminotransferase 14 U/L (7-40); Albumin 4.2 g/dL (3.2-4.8); Alkaline Phosphatase 66 U/L (46-116); Anion Gap 7 (5-15); Aspartate Aminotransferase 20 U/L (13-40); Blood Urea Nitrogen 16 mg/dL (9-23); Calcium 9.8 mg/dL (8.7-10.4); Carbon Dioxide 32 mmol/L (20-31); Chloride 103 mmol/L (98-107); Glucose 86 mg/dL (74-106); Potassium 4.6 mmol/L (3.5-5.1); Sodium 142 mmol/L (136-145); Total Protein 6.4 g/dL (5.7-8.2)
[2024-09-23 09:17] LABS: Bilirubin, Total 0.5 mg/dL (0.2-1.0)
[2024-09-23 10:14] LABS: Triglycerides 118 mg/dL (< 150)
[2024-09-23 10:15] LABS: LDL Cholesterol 100 mg/dL (< 100)
[2024-09-23 10:16] LABS: Cholesterol 179 mg/dL (< 200); HDL Cholesterol 60 mg/dL (40-59)
== END | disposition home or self-care (01) ==
LOC: LAB 08:23
PROVIDERS: ATTEND Family Medicine
DX: N18.2 Chronic kidney disease, stage 2 (mild) (principal); E03.9 Hypothyroidism, unspecified; E88.819 Insulin resistance, unspecified
CPT/HCPCS: 36415; 80053; 80061; 82043; 83036; 84443

== ENCOUNTER 2025-03-22 08:19 | Outpatient (CLI) | payer OTHER ==
[2025-03-22 09:31] LABS: Alanine Aminotransferase 19 U/L (7-40); Albumin 4.3 g/dL (3.2-4.8); Alkaline Phosphatase 85 U/L (46-116); Anion Gap 7 (5-15); BUN/Creatinine Ratio 25.9 (10.0-20.0); Blood Urea Nitrogen 21 mg/dL (9-23); Calcium 9.9 mg/dL (8.7-10.4); Chloride 106 mmol/L (98-107); Glucose 90 mg/dL (74-106); Potassium 5.0 mmol/L (3.5-5.1); Sodium 145 mmol/L (136-145); Total Protein 6.9 g/dL (5.7-8.2); Triglycerides 87 mg/dL (< 150)
[2025-03-22 09:32] LABS: Bilirubin, Total 0.4 mg/dL (0.2-1.0); Cholesterol 174 mg/dL (< 200)
[2025-03-22 09:42] LABS: Carbon Dioxide 32 mmol/L (20-31); HDL Cholesterol 66 mg/dL (40-59)
== END 2025-03-22 17:00 | disposition home or self-care (01) ==
LOC: LAB 08:19
PROVIDERS: ATTEND Family Medicine
DX: I12.9 Hypertensive chronic kidney disease with stage 1 through stage 4 chronic kidney disease, or unspecified chronic kidney disease (principal); N18.2 Chronic kidney disease, stage 2 (mild); E78.5 Hyperlipidemia, unspecified; R73.03 Prediabetes
CPT/HCPCS: 36415; 80053; 80061; 83036; 84443